=== PATIENT | male | born 1965 | race Caucasian/White ===

== ENCOUNTER 2016-04-18 19:22 | Emergency (ER) | payer SELFPAY ==
[2016-04-18 20:32] LABS: #Basophils 0.1 thou/uL (0.0-0.2); #Eosinphils 0.3 thou/uL (0.0-0.7); #Lymphocytes 1.6 thou/uL (1.20-3.40); #Monocytes 0.5 thou/uL (0.11-0.59); %Basophils 1.4 % (0.0-1.0); %Eosinophils 3.9 % (0.0-10.0); %Monocytes 6.5 % (0.0-10.0); Hematocrit 43.2 % (42.0-52.0); Mean Platelet Volume 6.7 fL (7.4-10.4); Red Blood Cell (RBC) Count 4.99 mill/uL (4.70-6.10); White Blood Cell (WBC) Count 7.4 thou/uL (4.8-10.8)
[2016-04-18 20:48] LABS: ALT (SGPT) 21 U/L (0-55); AST (SGOT) 20 U/L (5-34); Alkaline Phosphatase 61 U/L (40-150); Anion Gap 13 mmol/L (10-20); BUN (Urea Nitrogen) 19 mg/dL (8.9-20.6); Bilirubin, Total 0.5 mg/dL (0.2-1.2); CK (CPK) 238 U/L (30-200); Calc. Creatinine Clearance 0 mL/min (70-130); Calcium 9.3 mg/dL (7.8-10.44); Carbon Dioxide 22 mmol/L (22-29); Chloride 106 mmol/L (98-107); Estimated GFR-MDRD 67; Globulin 3.2 g/dL (2.4-3.5); Lipase 42 U/L (8-78); Protein, Total 7.5 g/dL (6.0-8.3)
[2016-04-18 20:51] LABS: Troponin I 0.017 ng/mL (< 0.028)
[2016-04-18] MEDS ORDERED: Ondansetron HCl/PF 4 MG/2 ML Vial ONE (21:34)
--- NOTE | 2016-04-18 21:57 | ERRECORD ---
[facility] EMERGENCY RECORD HPI WEAK-DIZZY (20:17 WMEI) CHIEF COMPLAINT: Patient presents for evaluation of weakness, Patient presents for evaluation of dizziness, Patient presents for evaluation of lightheadedness. HISTORIAN: History provided by patient, EPISODIC FOR 2 WKS USUALLY OCCURS AT NIGHT AROUND TIME TAKES [facility]. LOCATION: Symptoms are generalized. QUALITY: Patient is alert and oriented to person, place and time, Lan coma score is 15. TIME COURSE: Gradual onset of symptoms, 2, weeks ago. ASSOCIATED WITH: No associated chest pain, No associated fever, No associated headache, No associated vomiting. EXACERBATED BY: Patient's condition exacerbated by nothing. RELIEVED BY: Patient's condition relieved by nothing. ROS (20:18 WMEI) CONSTITUTIONAL: Historian denies chills, denies fever. EYES: Historian denies eye pain, denies eye discharge. ENT: Historian denies rhinorrhea, denies sinus pain, denies sore throat. CARDIOVASCULAR: Historian denies chest pain, no radiation. RESPIRATORY: Historian denies cough, denies shortness of breath. GI: Historian denies abdominal pain, denies nausea, denies vomiting. GENITOURINARY MALE: Historian denies dysuria, denies urinary urgency. MUSCULOSKELETAL: Historian reports arthralgias, denies myalgias. HZ OF MULTIPLE JOINT PAINS. SKIN: Historian denies skin changes, denies skin lesions. NEUROLOGIC: Historian reports dizziness, denies mental status changes. SEE HPI. PSYCHIATRIC: Historian denies memory loss, denies mood changes. PAST MEDICAL HISTORY (19:34 MMAN) MEDICAL HISTORY: Flu vaccine not up to date, Tetanus not up to date, Pneumococcal vaccine not up to date, GOUT, OSTEO ARTHRITIS, 'SEVERE JOINT DAMAGE', HTN. Verified 04/18/2016. MALE SURGICAL HISTORY: Surgical history of orthopedic surgery, right knee. LEFT HAND. Verified 04/18/2016. PSYCHIATRIC HISTORY: No previous psychiatric history, Verified 04/18/2016. SOCIAL HISTORY: Patient denies alcohol use, Patient currently uses drugs, abuses marijuana, Infrequent drug use, Last used: 03/25/2016 19:33, Drug history notes: on occasion for pain, Patient is a former tobacco user, smoked cigarettes, Patient quit smoking in the past year. FAMILY HISTORY: No known family hisotry.REVIEWED &a-1R&a+25V*p+0X*y8856O*c202B*c15G*c2P*p-0X&a-25V&a+1R Name: Preston Chacon : 1965 M50 MedRec: [id number] AcctNum: [id number] Prepared: Jane Apr 18, 2016 22:55 by Interface Page 1 of 3 pMD [facility] EMERGENCY RECORD 10/25/15. KNOWN ALLERGIES Cymbalta No K nown Drug Allergies (Unconfirmed) No Known Drug Allergies (Unconfirmed) UNKNOWN ANXIETY MEDICATION (Unconfirmed) CURRENT MEDICATIONS (19:39 MMAN) amLODIPine: TABLET : Strength - 5 mg : ORAL Patient Dose: 5 mg Oral once a day (in the evening). VITAL SIGNS VITAL SIGNS: BP: 159/95, Pulse: 57, Resp: 16, Temp: 98.4 (Oral), Pain: 0, O2 sat: 97 on Room Air, Time: 04/18/2016 19:30. (19:30 MMAN) BP: 154/102, Pulse: 59, Resp: 16, Pain: 0, O2 sat: 97 on Room Air, Time: 04/18/2016 20:15. (20:15 MMAN) BP: 140/96, Pulse: 61, Resp: 16, Temp: 98.5 (Oral), Pain: 0, O2 sat: 97 on Room Air, Time: 04/18/2016 21:30. (21:30 MMAN) PHYSICAL EXAM (20:19 WMEI) CONSTITUTIONAL: Vital signs reviewed, Patient appears non toxic, Patient alert and oriented to person, place and time. HEAD: Head exam included findings of head atraumatic, normocephalic. EYES: Conjunctiva normal, Sclera normal. ENT: Ear exam normal, Nose exam normal, Pharynx exam normal. NECK: Neck exam included findings of normal range of motion, Trachea midline. RESPIRATORY CHEST: Breath sounds clear, Chest exam included findings of chest movement symmetrical. CARDIOVASCULAR: Cardiovascular exam included findings of heart rate regular rate and rhythm, Heart sounds normal. ABDOMEN MALE: Abdominal exam included findings of abdomen nontender, Bowel sounds normal. UPPER EXTREMITY: Upper extremity exam included findings of inspection normal, Range of motion normal, Motor strength normal. LOWER EXTREMITY: Lower extremity exam included findings of inspection normal, Range of motion normal. NEURO: [place] coma scale 15, Neuro exam findings include patient oriented to person, place and time, Speech normal, Gait normal. SKIN: Skin exam included findings of skin warm, dry, and normal in color. LYMPHATIC: Lymphatic exam normal. PSYCHIATRIC: Psychiatric exam included findings of patient oriented to person place and time, Normal affect, Judgment normal, Insight normal. MEDICATION ADMINISTRATION SUMMARY &a-1R&a+25V*p+0X*n2906G*c202B*c15G*c2P*p-0X&a-25V&a+1R Name: Preston Chacon : 1965 M50 MedRec: [id number] AcctNum: [id number] Prepared: FriApr 18, 2016 22:55 by Interface Page 2 of 3 pMD [facility] EMERGENCY RECORD Drug Name: *Zofran intravenous, Dose Ordered: 4 mg, Route: IV Push, Status: Given, Time: 21:32 04/18/2016, *Additional information available in notes, Detailed record available in Medication Service section. PROBLEM LIST No recorded problems DIAGNOSIS (21:33 WMEI) FINAL: PRIMARY: DIZZINESS. PRESCRIPTION No recorded prescriptions DISPOSITION PATIENT: Disposition Type: Discharge, Disposition: *Discharge Home. (21:33 WMEI) Patient left the department. (21:46 MMAN) Collier: MMAN=JAMA Ruth Matthew WMEI=DO Brooks William &a-1R&a+25V*p+0X*k0990F*c202B*c15G*c2P*p-0X&a-25V&a+1R Name: Preston Chacon : 1965 M50 MedRec: [id number] AcctNum: [id number] Prepared: Jane Apr 18, 2016 22:55 by Interface Page 3 of 3 pMD MTDD
--- NOTE | 2016-04-18 22:04 | PICIS ---
[facility] EMERGENCY RECORD TRIAGE (FriApr 18, 2016 19:31 MMAN) PATIENT: NAME: Preston Chacon, AGE: 50, GENDER: male, : Fri1965, TIME OF GREET: FriApr 18, 2016 19:22, PREFERRED LANGUAGE: Uruguayan, ETHNICITY: Not or , ECODE BILLING MAP: [facility], SSN: [id number], Zip Code: [address], KG WEIGHT: 97.52, PHONE: , , , PERSON ID: [id number], PAYMENT: [employer] Self Pay, PCP: DO BORGES JOHN SCOTT. (FriApr 18, 2016 19:31 MMAN) TRIAGE NOTES: Intermittent weakness and dizziness x1 week. Patient states "tonight I was driving and it felt like I was disoriented and was going to just pass out." Hx of HTN. Patient denies chest pain or SOB. (FriApr 18, 2016 19:31 MMAN) COMPLAINT: Weakness. (FriApr 18, 2016 19:31 MMAN) ADMISSION: URGENCY: 2 Emergent, ADMISSION SOURCE: Home, TRANSPORT: CAR, BED: TRIAGE. (FriApr 18, 2016 19:31 MMAN) SIRS SCORING: Heart Rate 55-109 (0), Temp range 96.8-101.1 (0), respiratory rate 12-24 (0), Mental Status altered: no (0), Infection or Suspected Infection: No. (19:34 MMAN) TRIAGE SCREENING: Patient denies suicidal ideation, Patient denies presence of domestic violence. (19:34 MMAN) TREATMENTS IN PROGRESS: Medications Given, NONE. (19:34 MMAN) PROVIDERS: TRIAGE NURSE: Clifford Ruth RN. (FriApr 18, 2016 19:31 MMAN) VITAL SIGNS: BP 159/95, Pulse 57, Resp 16, Temp 98.4, (Oral), Pain 0, O2 Sat 97, on Room Air, Time 04/18/2016 19:30. (19:30 MMAN) PREVIOUS VISIT ALLERGIES: UNKNOWN ANXIETY MEDICATION. (FriApr 18, 2016 19:31 MMAN) UNKNOWN ANXIETY MEDICATION. (19:34 MMAN) KNOWN ALLERGIES Cymbalta No K nown Drug Allergies (Unconfirmed) No Known Drug Allergies (Unconfirmed) UNKNOWN ANXIETY MEDICATION (Unconfirmed) CURRENT MEDICATIONS (19:39 MMAN) amLODIPine: TABLET : Strength - 5 mg : ORAL Patient Dose: 5 mg Oral once a day (in the evening). VITAL SIGNS VITAL SIGNS: BP: 159/95, Pulse: 57, Resp: 16, Temp: 98.4 (Oral), Pain: 0, O2 sat: 97 on Room Air, Time: 04/18/2016 19:30. (19:30 MMAN) BP: 154/102, Pulse: 59, Resp: 16, Pain: 0, O2 sat: 97 on Room Air, Time: 04/18/2016 20:15. (20:15 MMAN) BP: 140/96, Pulse: 61, Resp: 16, Temp: 98.5 (Oral), Pain: 0, O2 sat: 97 on Room Air, Time: 04/18/2016 21:30. (21:30 MMAN) NURSING ASSESSMENT: CARDIOVASCULAR (19:41 MMAN) CONSTITUTIONAL: Complex assessment performed, Patient arrives &a-1R&a+25V*p+0X*r7725B*c202B*c15G*c2P*p-0X&a-25V&a+1R Name: Preston Chacon : 1965 M50 MedRec: [id number] AcctNum: [id number] Prepared: Jane Apr 18, 2016 23:01 by Interface Page 1 of 7 pMD [facility] EMERGENCY RECORD ambulatory, Gait steady, History obtained from patient, Patient appears comfortable, Patient cooperative, Patient alert, Oriented to person, place and time, Skin warm, Skin dry, Skin normal in color, Mucous membranes pink, Mucous membranes moist, Patient is well-groomed, Patient complains of Weakness, Intermittent weakness and dizziness x1 week. Patient states "tonight I was driving and it felt like I was disoriented and was going to just pass out." Hx of HTN. Patient denies chest pain or SOB. PAIN: patient denies any pain. CARDIOVASCULAR: Cardiovascular assessment findings include heart rate, bradycardic, Rate 57, Heart rhythm, sinus bradycardia, Heart sounds normal, S1, S2, Left radial pulse +3(easily palpated, considered normal), Right radial pulse +3(easily palpated, considered normal), Associated with weakness, Patient states "I don't feel right, at times I feel like I'm going to pass out.". RESPIRATORY/CHEST: Breath sounds clear, Respiratory assessment findings include respiratory effort easy, Respirations regular, Conversing normally, Neck and chest exam findings include trachea midline, Chest expansion equal, Chest movement symmetrical, no signs of distress, no associated cough noted, no associated fever. SAFETY: Side rails up, Cart/Stretcher in lowest position, Family at bedside, Call light within reach, Hospital ID band on. NURSING ASSESSMENT: FALL RISK (19:44 MMAN) FALL RISK: Fall risk assessment findings include: no history of falls (0), No bed rest greater than 2 days (0), Use of level of consciousness altering agents with mentation or cognitive changes (3), No change in blood pressure (0), No sensory deficits (0), No impaired mobility (0), No neurologic diagnosis (0), No elimination problems (0), No confusion (0), Total score 3, No risk for fall. NURSING ASSESSMENT: SKIN (19:44 MMAN) SKIN: Skin assessment findings include skin warm, Skin dry, Skin normal in color, Notes: no s/s of breakdown. [place] SCALE: (4) Sensory perception has no impairment, (4) Skin is rarely moist, (4) Patient walks frequently, (4) No mobility limitations, (4) Excellent Nutrition, (3) Patient has no apparent problem moving, [place] Risk Total: 23. SAFETY: Side rails up, Cart/Stretcher in lowest position, Family at bedside, Call light within reach, Hospital ID band on. NURSING PROCEDURE: PAIN COORDINATOR (19:31 MMAN) PATIENT IDENTIFIER: Patient actively involved in identification process, Patient's identity verified by patient stating name, Patient's identity verified by patient stating date. PAIN COORDINATOR: Cardiac monitoring indicated for weakness, Patient placed on cardiac tech, Heart rate: 59, showing sinus bradycardia, Patient placed on non-invasive &a-1R&a+25V*p+0X*y1609Z*c202B*c15G*c2P*p-0X&a-25V&a+1R Name: GreenePreston : 1965 M50 MedRec: [id number] AcctNum: [id number] Prepared: Jane Apr 18, 2016 23:01 by Interface Page 2 of 7 pMD [facility] EMERGENCY RECORD blood pressure monitor, with disposable blood pressure cuff applied. FOLLOW-UP: After procedure, alarms set and on, After procedure, patient tolerating monitoring. NOTES: Patient tolerated procedure well. SAFETY: Side rails up, Cart/Stretcher in lowest position, Family at bedside, Call light within reach, Hospital ID band on. NURSING PROCEDURE: DISCHARGE NOTE (21:46 MMAN) DISCHARGE: Patient discharged to home, ambulating without assistance, family driving, accompanied by //partner, Summary of Care printed/ provided, Transition record given to patient, Discharge instructions given to patient, Simple or moderate discharge teaching performed, Above person(s) verbalized understanding of discharge instructions and follow-up care. BELONGINGS: Belongings and valuables with patient at time of discharge include:, Belongings remain with patient, Valuables remain with patient. SAFETY: Side rails up, Cart/Stretcher in lowest position, Family at bedside, Call light within reach, Hospital ID band on. NURSING PROCEDURE: EKG CHART (19:31 MMAN) PATIENT IDENTIFIER: Patient actively involved in identification process, Patient's identity verified by patient stating name, Patient's identity verified by patient stating date. EK lead EKG performed on the left chest, done by JAMA Rodrigez, first EKG. SAFETY: Side rails up, Cart/Stretcher in lowest position, Family at bedside, Call light within reach, Hospital ID band on. NURSING PROCEDURE: IV PATIENT IDENITIFIER: Patient actively involved in identification process, Patient's identity verified by patient stating name, Patient's identity verified by patient stating date. (20:12 MMAN) IV SITE 1: IV therapy indicated for hydration, IV therapy indicated for medication administration, IV established, to the left forearm, using a 20 gauge catheter, in one attempt, IV site prepped with Chloraprep, Saline lock established, Flushed with normal saline (mls): 10. (20:12 MMAN) FOLLOW-UP SITE 1: After procedure, sterile transparent dressing applied. (20:12 MMAN) After procedure, sterile transparent dressing applied, IV discontinued, due to patient being discharged, catheter intact. (21:35 MMAN) SAFETY: Side rails up, Cart/Stretcher in lowest position, Call light within reach, Hospital ID band on, Friend(s) at bedside. (20:12 MMAN) ORDER DETAILS Order Name: PAIN COORDINATOR ED, Status: Done, Time: 19:48 04/18/2016, &a-1R&a+25V*p+0X*q3047I*c202B*c15G*c2P*p-0X&a-25V&a+1R Name: Preston Chacon : 1965 M50 MedRec: [id number] AcctNum: [id number] Prepared: FriApr 18, 2016 23:01 by Interface Page 3 of 7 pMD [facility] EMERGENCY RECORD User: LETY, - Ordered for: DO Brooks William, - Entered by: JAMA Ruth Matthew - Thu Apr 18, 2016 19:47, - Quantity: 1, Order Name: Cardiac Profile w/CKMB & Troponin - I, Status: Active, Time: 19:47 04/18/2016, User: LETY, - Ordered for: DO Brooks William, - Entered by: JAMA Ruth Matthew - Thu Apr 18, 2016 19:47, - Quantity: 1, Order Name: CBC with Differential, Status: Active, Time: 19:47 04/18/2016, User: LTEY, - Ordered for: DO Brooks William, - Entered by: JAMA Ruth Matthew - Jane Apr 18, 2016 19:47, - Quantity: 1, Order Name: CK (CPK), Status: Active, Time: 19:47 04/18/2016, User: LETY, - Ordered for: DO Brooks William, - Entered by: JAMA Ruth Matthew - Thu Apr 18, 2016 19:47, - Quantity: 1, Order Name: Comprehensive Metabolic Panel, Status: Active, Time: 19:47 04/18/2016, User: LETY, - Ordered for: DO Brooks William, - Entered by: JAMA Ruth Matthew - Thu Apr 18, 2016 19:47, - Quantity: 1, Order Name: EKG 12 Lead in Emergency Room, Status: Active, Time: 19:45 04/18/2016, User: LETY, - Ordered for: DO Brooks William, - Entered by: JAMA Ruth, [facility] Apr 18, 2016 19:45, - Quantity: 1, Order Name: Lipase, Status: Active, Time: 19:47 04/18/2016, User: LETY, - Ordered for: DO Brooks William, - Entered by: JAMA Ruth, [facility] Apr 18, 2016 19:47, - Quantity: 1, Order Name: SALINE LOCK, Status: Done, Time: 20:16 04/18/2016, User: LETY, - Ordered for: DO Brooks William, - Entered by: JAMA Ruth [facility] Apr 18, 2016 19:47, - Quantity: 1. MEDICATION ADMINISTRATION SUMMARY Drug Name: *Zofran intravenous, Dose Ordered: 4 mg, Route: IV Push, Status: Given, Time: 21:32 04/18/2016, *Additional information available in notes, Detailed record available in Medication Service section. MEDICATION SERVICE Zofran intravenous: Order: Zofran intravenous (ondansetron HCl) - Dose: 4 mg : IV Push &a-1R&a+25V*p+0X*f1189F*c202B*c15G*c2P*p-0X&a-25V&a+1R Name: Preston Chacon : 1965 M50 MedRec: [id number] AcctNum: [id number] Prepared: [facility] Apr 18, 2016 23:01 by Interface Page 4 of 7 pMD [facility] EMERGENCY RECORD Schedule: Now Notes: Read back and verified, Verbal Order Ordered by: Víctor Brooks DO Entered by: Clifford Ruth RN [facility] Apr 18, 2016 21:40 Documented as given by: Clifford Ruth RN [facility] Apr 18, 2016 21:32 Patient, Medication, Dose, Route and Time verified prior to administration. Verbal order read back and verified, Amount given: 4 mg, IV SITE #1 IVP, initial medication, Slowly, Connections checked prior to administration, Line traced prior to administration, Catheter placement confirmed via flush prior to administration, IV site without signs or symptoms of infiltration during medication administration, No swelling during administration, No drainage during administration, IV flushed after administration, Correct patient, time, route, dose and medication confirmed prior to administration, Patient advised of actions and side-effects prior to administration, Allergies confirmed and medications reviewed prior to administration, Patient in position of comfort, Side rails up, Cart in lowest position, Family at bedside, Call light in reach. : Follow Up : Response assessment performed, No signs or symptoms of allergic reaction noted, _IV SITE #1:_, Advised not to ambulate without assistance, Patient in position of comfort, Side rails up, Cart in lowest position, Family at bedside. (21:45 MMAN) HPI WEAK-DIZZY (20:17 WMEI) CHIEF COMPLAINT: Patient presents for evaluation of weakness, Patient presents for evaluation of dizziness, Patient presents for evaluation of lightheadedness. HISTORIAN: History provided by patient, EPISODIC FOR 2 WKS USUALLY OCCURS AT NIGHT AROUND TIME TAKES [facility]. LOCATION: Symptoms are generalized. QUALITY: Patient is alert and oriented to person, place and time, [place] coma score is 15. TIME COURSE: Gradual onset of symptoms, 2, weeks ago. ASSOCIATED WITH: No associated chest pain, No associated fever, No associated headache, No associated vomiting. EXACERBATED BY: Patient's condition exacerbated by nothing. RELIEVED BY: Patient's condition relieved by nothing. ROS (20:18 WMEI) CONSTITUTIONAL: Historian denies chills, denies fever. EYES: Historian denies eye pain, denies eye discharge. ENT: Historian denies rhinorrhea, denies sinus pain, denies sore throat. CARDIOVASCULAR: Historian denies chest pain, no radiation. RESPIRATORY: Historian denies cough, denies shortness of breath. GI: Historian denies abdominal pain, denies nausea, denies vomiting. GENITOURINARY MALE: Historian denies dysuria, denies urinary &a-1R&a+25V*p+0X*w5572Y*c202B*c15G*c2P*p-0X&a-25V&a+1R Name: Preston Chacon Jamal : 1965 [facility]: [id number] AcctNum: [id number] Prepared: Jane Apr 18, 2016 23:01 by Interface Page 5 of 7 pMD [facility] EMERGENCY RECORD urgency. MUSCULOSKELETAL: Historian reports arthralgias, denies myalgias. HZ OF MULTIPLE JOINT PAINS. SKIN: Historian denies skin changes, denies skin lesions. NEUROLOGIC: Historian reports dizziness, denies mental status changes. SEE HPI. PSYCHIATRIC: Historian denies memory loss, denies mood changes. PAST MEDICAL HISTORY (19:34 MMAN) MEDICAL HISTORY: Flu vaccine not up to date, Tetanus not up to date, Pneumococcal vaccine not up to date, GOUT, OSTEO ARTHRITIS, 'SEVERE JOINT DAMAGE', HTN. Verified 04/18/2016. MALE SURGICAL HISTORY: Surgical history of orthopedic surgery, right knee. LEFT HAND. Verified 04/18/2016. PSYCHIATRIC HISTORY: No previous psychiatric history, Verified 04/18/2016. SOCIAL HISTORY: Patient denies alcohol use, Patient currently uses drugs, abuses marijuana, Infrequent drug use, Last used: 03/25/2016 19:33, Drug history notes: on occasion for pain, Patient is a former tobacco user, smoked cigarettes, Patient quit smoking in the past year. FAMILY HISTORY: No known family hisotry.REVIEWED 10/25/15. PHYSICAL EXAM (20:19 WMEI) CONSTITUTIONAL: Vital signs reviewed, Patient appears non toxic, Patient alert and oriented to person, place and time. HEAD: Head exam included findings of head atraumatic, normocephalic. EYES: Conjunctiva normal, Sclera normal. ENT: Ear exam normal, Nose exam normal, Pharynx exam normal. NECK: Neck exam included findings of normal range of motion, Trachea midline. RESPIRATORY CHEST: Breath sounds clear, Chest exam included findings of chest movement symmetrical. CARDIOVASCULAR: Cardiovascular exam included findings of heart rate regular rate and rhythm, Heart sounds normal. ABDOMEN MALE: Abdominal exam included findings of abdomen nontender, Bowel sounds normal. UPPER EXTREMITY: Upper extremity exam included findings of inspection normal, Range of motion normal, Motor strength normal. LOWER EXTREMITY: Lower extremity exam included findings of inspection normal, Range of motion normal. NEURO: [place] coma scale 15, Neuro exam findings include patient oriented to person, place and time, Speech normal, Gait normal. SKIN: Skin exam included findings of skin warm, dry, and normal in color. LYMPHATIC: Lymphatic exam normal. &a-1R&a+25V*p+0X*z1221X*c202B*c15G*c2P*p-0X&a-25V&a+1R Name: Preston Chacon : 1965 0 MedRec: [id number] AcctNum: [id number] Prepared: FriApr 18, 2016 23:01 by Interface Page 6 of 7 pMD [facility] EMERGENCY RECORD PSYCHIATRIC: Psychiatric exam included findings of patient oriented to person place and time, Normal affect, Judgment normal, Insight normal. EVENTS TRANSFER: Triage to Emergency Triage. (FriApr 18, 2016 19:31 MMAN) Emergency Triage to Emergency Room -01. (19:32 MMAN) Removed from Emergency Emergency Room -01. (21:46 MMAN) PROBLEM LIST No recorded problems DIAGNOSIS (21:33 WMEI) FINAL: PRIMARY: DIZZINESS. DISPOSITION PATIENT: Disposition Type: Discharge, Disposition: *Discharge Home. (21:33 WMEI) Patient left the department. (21:46 MMAN) INSTRUCTION (21:34 WMEI) DISCHARGE: DIZZINESS, UNK CAUSE, BRADYCARDIA. FOLLOWUP: DO BORGES JOHN SCOTT, [facility], [address] [place] [address], . SPECIAL: Follow-up with your PCP/CALL IN AM. PRESCRIPTION No recorded prescriptions IMAGING *DISCHARGE INSTRUCTIONS RECEIPT: Image captured from scanner. (21:56 MMAN) *SUPPLY CHARGE SHEET: Image captured from scanner. (21:56 MMAN) EKG: Image captured from scanner. (22:07 AADK) ADMIN (22:49 WMEI) DIGITAL SIGNATURE: DO Brooks William. Collier: AADK=JAMA Cabrera, Saima MMAN=JAMA Ruth, Clifford WMEI=DO Brooks William &a-1R&a+25V*p+0X*l2019P*c202B*c15G*c2P*p-0X&a-25V&a+1R Name: Preston Chacon : 1965 0 MedRec: [id number] AcctNum: [id number] Prepared: FriApr 18, 2016 23:01 by Interface Page 7 of 7 pMD MTDD
== END 2016-04-18 21:45 | disposition home or self-care (01) ==
LOC: BURERS 19:22
DX: R42 Dizziness and giddiness (principal); Z87.891 Personal history of nicotine dependence
CPT/HCPCS: 36415; 80053; 82550; 82553; 83690; 84484; 85025; 93005; 96374; J2405

== ENCOUNTER 2016-07-26 13:19 | Emergency (ER) | payer MEDICARE, OTHER ==
[2016-07-26 13:41] LABS: #Basophils 0.1 thou/uL (0.0-0.2); #Eosinphils 0.3 thou/uL (0.0-0.7); #Lymphocytes 1.8 thou/uL (1.20-3.40); #Monocytes 0.5 thou/uL (0.11-0.59); #Neutrophils 4.5 thou/uL (1.40-6.50); %Basophils 1.1 % (0.0-1.0); %Eosinophils 3.8 % (0.0-10.0); %Lymphocytes 24.9 % (21.0-51.0); %Monocytes 6.6 % (0.0-10.0); %Neutrophils 63.6 % (42.0-75.0); Hemoglobin 15.7 g/dL (14.0-18.0); Mean Corpuscular HGB CONC 33.4 g/dL (32.0-36.0); Mean Corpuscular Volume 86.8 fl (80.0-94.0); Mean Platelet Volume 7.4 fL (7.4-10.4); Platelet Count 244 thou/uL (130-400); RBC Distribution Width 12.3 % (11.5-14.5); White Blood Cell (WBC) Count 7.1 thou/uL (4.8-10.8)
[2016-07-26 13:59] LABS: ALT (SGPT) 21 U/L (0-55); AST (SGOT) 22 U/L (5-34); Albumin 4.6 g/dL (3.5-5.0); Alkaline Phosphatase 64 U/L (40-150); Anion Gap 14 mmol/L (10-20); BUN (Urea Nitrogen) 12 mg/dL (8.9-20.6); Bilirubin, Total 0.7 mg/dL (0.2-1.2); Calc. Creatinine Clearance 0 mL/min (70-130); Calcium 9.7 mg/dL (7.8-10.44); Carbon Dioxide 26 mmol/L (22-29); Chloride 106 mmol/L (98-107); Estimated GFR-MDRD 67; Globulin 3.2 g/dL (2.4-3.5); Glucose 103 mg/dL (70-105); Protein, Total 7.8 g/dL (6.0-8.3); Sodium 142 mmol/L (136-145)
[2016-07-26 14:00] LABS: CKMB 1.3 ng/mL (0-6.6); Troponin I Less than 0.010 ng/mL (< 0.028)
[2016-07-26 15:50] LABS: Troponin I Less than 0.010 ng/mL (< 0.028)
== END 2016-07-26 16:04 | disposition home or self-care (01) ==
LOC: BURERS 13:19
DX: R55 Syncope and collapse (principal); I10 Essential (primary) hypertension; M10.9 Gout, unspecified; M19.90 Unspecified osteoarthritis, unspecified site; F17.210 Nicotine dependence, cigarettes, uncomplicated
CPT/HCPCS: 80053; 82553; 84443; 84484; 85025; 93005

== ENCOUNTER 2018-05-22 11:40 | Emergency (ER) | payer MEDICARE, SELFPAY ==
[2018-05-22 12:07] LABS: #Basophils 0.1 thou/uL (0.0-0.2); #Lymphocytes 1.2 thou/uL (1.20-3.40); #Monocytes 0.7 thou/uL (0.11-0.59); #Neutrophils 11.4 thou/uL (1.40-6.50); %Basophils 0.5 % (0.0-1.0); %Eosinophils 0.4 % (0.0-10.0); %Lymphocytes 8.8 % (21.0-51.0); %Neutrophils 85.3 % (42.0-75.0); Hemoglobin 15.6 g/dL (14.0-18.0); Mean Corpuscular HGB CONC 35.8 g/dL (32.0-36.0); Mean Corpuscular Hemoglobin 29.1 pg (27.0-31.0); Mean Corpuscular Volume 81.2 fL (78.0-98.0); Mean Platelet Volume 7.1 fL (7.4-10.4); Platelet Count 244 thou/uL (130-400); RBC Distribution Width 11.7 % (11.5-14.5); Red Blood Cell (RBC) Count 5.36 mill/uL (4.70-6.10); White Blood Cell (WBC) Count 13.4 thou/uL (4.8-10.8)
[2018-05-22] MEDS ORDERED: Ondansetron PF 4 MG/2 ML Vial ONE (12:09)
[2018-05-22] MEDS ORDERED: Ketorolac Tromethamine 30 MG/ML VIAL ONE (12:09)
[2018-05-22 12:24] LABS: ALT (SGPT) 14 U/L (8-55); AST (SGOT) 16 U/L (5-34); Albumin 4.4 g/dL (3.5-5.0); Alkaline Phosphatase 61 U/L (40-150); Anion Gap 14 mmol/L (10-20); BUN (Urea Nitrogen) 13 mg/dL (8.4-25.7); Bilirubin, Total 1.1 mg/dL (0.2-1.2); Calc. Creatinine Clearance 0 mL/min (70-130); Calcium 9.8 mg/dL (7.8-10.44); Carbon Dioxide 23 mmol/L (22-29); Chloride 105 mmol/L (98-107); Estimated GFR-MDRD 78; Globulin 3.2 g/dL (2.4-3.5); Glucose 108 mg/dL (70-105); Lipase 16 U/L (8-78); Potassium 3.7 mmol/L (3.5-5.1); Protein, Total 7.6 g/dL (6.0-8.3); Sodium 138 mmol/L (136-145)
[2018-05-22 12:33] LABS: Bilirubin Negative (Negative); Blood, Urine Trace (Negative); Clarity Clear (Clear); Glucose, Urine (Dipstick) Negative (Negative); Leukocyte Negative (Negative); Nitrite Negative (Negative); Protein, Urine (Dipstick) 30 mg/dL (Neg-Trace); Specific Gravity, Urine 1.015 (1.005-1.030); Urobilinogen 0.2 mg/dL (0.2-1.0); pH, Urine 8.5 (5.0-9.0)
[2018-05-22 12:39] LABS: Bacteria/HPF Rare-Few HPF (None Seen); RBC/HPF 0-3 HPF (0-3); Squamous Epithelial 0-3 HPF (0-3); WBC/HPF 0-3 HPF (0-3)
[2018-05-22] MEDS ORDERED: metroNIDAZOLE 250 MG TAB ONE (13:05)
[2018-05-22] MEDS ORDERED: Ciprofloxacin 500 MG TAB ONE (13:05)
--- NOTE | 2018-05-22 18:13 | CT ---
CT ABDOMEN AND PELVIS WITH CONTRAST: 05/22/[address] of the abdomen and pelvis was performed for lower abdominal pain. Axial slices were acquire d followed by coronale reconstructions. The lung bases are clear. The liver and spleen were unremarka ble except for a tiny subcentimeter cystic lesion near the dome of the liver that is probably of no c oncern. The pancreas, gallbladder, adrenal glands, and kidneys showed no acute change. There were sev eral lucencies associated with each kidney which are most likely very tiny cysts. Ultrasound would be confirmatory. The aorta is normal in caliber. The main finding with relationship to bowel is marked inflammatory streaking around the sigmoid colon . Some diverticula are present and there is some mild thickening of the colonic wall. The findings ar e typical of diverticulitis. No focal abscess or drainable fluid collection was seen. The bladder wal l is concentrically thickened which could indicate either cystitis, bladder outlet obstruction, or in flammatory change from the adjacent diverticulitis. No pelvic masses were seen. There is no free flui d in the pelvis. The lumbar spine and bony pelvis showed no evidence of fracture or bony destructive lesion. IMPRESSION: Sigmoid diverticulitis. POS: HOME
== END 2018-05-22 13:17 | disposition home or self-care (01) ==
LOC: BURERS 11:40
DX: K57.32 Diverticulitis of large intestine without perforation or abscess without bleeding (principal); I10 Essential (primary) hypertension; M10.9 Gout, unspecified; F17.210 Nicotine dependence, cigarettes, uncomplicated; Z79.899 Other long term (current) drug therapy
CPT/HCPCS: 74177; 80053; 81003; 81015; 83605; 83690; 85025; 94760; 96372; 96374; 96375; J0500; J1885; J2405

== ENCOUNTER 2018-05-25 19:27 | Emergency (ER) | payer MEDICARE ==
[2018-05-25 20:07] LABS: #Basophils 0.1 thou/uL (0.0-0.2); #Eosinphils 0.2 thou/uL (0.0-0.7); #Monocytes 0.8 thou/uL (0.11-0.59); #Neutrophils 8.6 thou/uL (1.40-6.50); %Basophils 0.8 % (0.0-1.0); %Eosinophils 2.2 % (0.0-10.0); Hemoglobin 13.5 g/dL (14.0-18.0); Mean Corpuscular Hemoglobin 29.3 pg (27.0-31.0); Mean Corpuscular Volume 81.4 fL (78.0-98.0); Mean Platelet Volume 6.9 fL (7.4-10.4); Platelet Count 263 thou/uL (130-400); RBC Distribution Width 11.5 % (11.5-14.5); Red Blood Cell (RBC) Count 4.59 mill/uL (4.70-6.10); White Blood Cell (WBC) Count 10.7 thou/uL (4.8-10.8)
[2018-05-25 20:24] LABS: ALT (SGPT) 10 U/L (8-55); AST (SGOT) 16 U/L (5-34); Alkaline Phosphatase 56 U/L (40-150); Anion Gap 13 mmol/L (10-20); BUN (Urea Nitrogen) 18 mg/dL (8.4-25.7); Bilirubin, Total 0.6 mg/dL (0.2-1.2); Calc. Creatinine Clearance 0 mL/min (70-130); Calcium 9.3 mg/dL (7.8-10.44); Carbon Dioxide 26 mmol/L (22-29); Chloride 101 mmol/L (98-107); Estimated GFR-MDRD 56; Glucose 126 mg/dL (70-105); Lipase 69 U/L (8-78); Potassium 3.2 mmol/L (3.5-5.1); Sodium 137 mmol/L (136-145)
[2018-05-25] MEDS ORDERED: Famotidine In NaCl 20 mg/50 ml Premix Bag ONE (20:25)
[2018-05-25] MEDS ORDERED: Ondansetron PF 4 MG/2 ML Vial ONE (20:25)
--- NOTE | 2018-05-25 23:02 | RAD ---
AP PORTABLE CHEST: 05/25/20182036 HOURS COMPARISON: 10/21/2015 FINDINGS: The heart size is normal and unchanged. There is no vascular congestion, edema, or pleural effusion. The lungs are clear. IMPRESSION: No acute thoracic findings. POS: HOME
== END 2018-05-25 21:50 | disposition short-term general hospital (02) ==
LOC: BURERS 19:27
DX: I47.2 Ventricular tachycardia (principal); K57.92 Diverticulitis of intestine, part unspecified, without perforation or abscess without bleeding; I10 Essential (primary) hypertension; M19.90 Unspecified osteoarthritis, unspecified site; M10.9 Gout, unspecified; F17.210 Nicotine dependence, cigarettes, uncomplicated; Z79.899 Other long term (current) drug therapy
CPT/HCPCS: 71045; 80053; 83690; 83735; 84484; 85025; 93005; 96365; 96367; 96375; J2405

== ENCOUNTER 2018-08-03 03:39 | Emergency (ER) | payer MEDICARE ==
[2018-08-03] MEDS ORDERED: metroNIDAZOLE 250 MG TAB ONE (04:08)
[2018-08-03] MEDS ORDERED: Morphine 10 MG/ML VIAL ONE (04:08)
[2018-08-03] MEDS ORDERED: Cephalexin 500 MG CAP ONE (04:08)
[2018-08-03] MEDS ORDERED: Magnesium Citrate 300 ML BOT ONE (04:08)
== END 2018-08-03 04:16 | disposition home or self-care (01) ==
LOC: BURERS 03:39
DX: K57.92 Diverticulitis of intestine, part unspecified, without perforation or abscess without bleeding (principal); M19.90 Unspecified osteoarthritis, unspecified site; Z87.891 Personal history of nicotine dependence; Z79.899 Other long term (current) drug therapy
CPT/HCPCS: 96372; J2270

== ENCOUNTER 2022-01-28 11:28 | Emergency (ER) | payer MEDICARE, OTHER | END 2022-01-28 13:27 | disposition home or self-care (01) | LOC: BURERS 11:28 | DX: Z53.21 Procedure and treatment not carried out due to patient leaving prior to being seen by health care provider (principal) ==

== ENCOUNTER 2022-01-29 08:18 | Emergency (ER) | payer OTHER ==
[2022-01-29] MEDS ORDERED: Ondansetron PF 4 MG/2 ML Vial ONE (09:03)
[2022-01-29] MEDS ORDERED: HYDROmorphone 0.5 MG/0.5 ML SYRINGE ONE (09:03)
[2022-01-29 09:07] LABS: #Eosinphils 0.2 thou/uL (0.0-0.7); #Lymphocytes 1.3 thou/uL (1.20-3.40); #Monocytes 0.5 thou/uL (0.11-0.59); #Neutrophils 4.2 thou/uL (1.40-6.50); %Basophils 0.8 % (0.0-1.0); %Eosinophils 3.3 % (0.0-10.0); %Lymphocytes 20.3 % (21.0-51.0); %Neutrophils 67.6 % (42.0-75.0); Hemoglobin 16.5 g/dL (14.0-18.0); Mean Corpuscular HGB CONC 33.8 g/dL (32.0-36.0); Mean Corpuscular Hemoglobin 29.2 pg (27.0-31.0); Mean Corpuscular Volume 86.3 fl (78.0-98.0); Mean Platelet Volume 7.2 fL (7.4-10.4); Platelet Count 285 thou/uL (130-400); RBC Distribution Width 11.8 % (11.5-14.5); Red Blood Cell (RBC) Count 5.65 mill/uL (4.70-6.10); White Blood Cell (WBC) Count 6.2 thou/uL (4.8-10.8)
[2022-01-29 09:25] LABS: ALT (SGPT) 19 U/L (8-55); AST (SGOT) 21 U/L (5-34); Albumin 4.5 g/dL (3.5-5.0); Alkaline Phosphatase 65 U/L (40-110); Anion Gap 15 mmol/L (10-20); BUN (Urea Nitrogen) 14 mg/dL (8.4-25.7); Bilirubin, Total 0.9 mg/dL (0.2-1.2); Calc. Creatinine Clearance 0 mL/min (70-130); Calcium 9.7 mg/dL (7.8-10.44); Carbon Dioxide 25 mmol/L (22-29); Chloride 104 mmol/L (98-107); Estimated GFR 80; Globulin 3.5 g/dL (2.4-3.5); Glucose 96 mg/dL (70-105); Sodium 140 mmol/L (136-145)
[2022-01-29 09:27] LABS: Bilirubin Negative (Negative); Blood, Urine Trace (Negative); Clarity Clear (Clear); Glucose, Urine (Dipstick) Negative (Negative); Ketone, Urine Negative (Negative); Leukocyte Negative (Negative); Nitrite Negative (Negative); Protein, Urine (Dipstick) Negative (Neg-Trace); Urobilinogen 0.2 mg/dL (Less than 2); pH, Urine 7.5 (5.0-9.0)
[2022-01-29 09:50] LABS: Bacteria/HPF Rare-Few HPF (None Seen); RBC/HPF 0-3 HPF (0-3); Squamous Epithelial 0-3 HPF (0-3); WBC/HPF 0-3 HPF (0-3)
[2022-01-29] MEDS ORDERED: Iopamidol 370 76% 100 ML VIAL ONE (16:41)
== END 2022-01-29 11:07 | disposition home or self-care (01) ==
LOC: BURERS 08:18
DX: S22.42XA Multiple fractures of ribs, left side, initial encounter for closed fracture (principal); S12.600A Unspecified displaced fracture of seventh cervical vertebra, initial encounter for closed fracture; G89.29 Other chronic pain; N28.1 Cyst of kidney, acquired; M43.06 Spondylolysis, lumbar region; I10 Essential (primary) hypertension; Z87.891 Personal history of nicotine dependence; W11.XXXA Fall on and from ladder, initial encounter
CPT/HCPCS: 70450; 71260; 72125; 74177; 80053; 81003; 81015; 83605; 85025; 94799; 96374; 96375; J1170; J2405; Q9967

== ENCOUNTER 2022-07-28 20:24 | Emergency (ER) | payer OTHER ==
[2022-07-28] MEDS ORDERED: Morphine 2 MG/ML VIAL ONE (21:13)
[2022-07-28] MEDS ORDERED: Dexamethasone 10 MG/ML VIAL ONE (21:13)
== END 2022-07-28 21:42 | disposition home or self-care (01) ==
LOC: BURERS 20:24
DX: M10.9 Gout, unspecified (principal); I10 Essential (primary) hypertension; M19.90 Unspecified osteoarthritis, unspecified site; Z87.891 Personal history of nicotine dependence; Z79.899 Other long term (current) drug therapy
CPT/HCPCS: 96372; 99283; J1100; J2272

== ENCOUNTER 2023-08-04 12:22 | Emergency (ER) | payer OTHER ==
[2023-08-04] MEDS ORDERED: Lidocaine 1% (PF) 30 ML VIAL ONE (13:41)
[2023-08-04] MEDS ORDERED: Ondansetron ODT 4 MG TAB ONE (13:54)
[2023-08-04] MEDS ORDERED: methylPREDNISolone Sod Succ 40 MG VIAL ONE (14:21)
[2023-08-04] MEDS ORDERED: methylPREDNISolone Sod Succ/PF 125 MG/2 ML VIAL ONE (14:24)
== END 2023-08-04 14:34 | disposition home or self-care (01) ==
LOC: BURERS 12:22
DX: M17.12 Unilateral primary osteoarthritis, left knee (principal); M19.072 Primary osteoarthritis, left ankle and foot; M10.9 Gout, unspecified; I10 Essential (primary) hypertension; Z87.891 Personal history of nicotine dependence
CPT/HCPCS: 20610; 82945; 87070; 87077; 87186; 87205; 89060; 96372; J2001; J2920; J2930; Q0162